=== PATIENT | male | born 1990 | race Caucasian/White ===

== ENCOUNTER 2018-05-02 02:42 | Emergency (ER) | payer SELFPAY ==
[~2018-05-02] VITALS: Ht 167.6 cm; Wt 63.5 kg
--- NOTE | 2018-05-02 02:44 | NUR ---
Pt bib [facility] for prebook.
[2018-05-02 02:45] VITALS: BP_SYST 117; BP_SYST 138; BP_DIAS 72; BP_DIAS 92
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
[2018-05-02] MEDS ORDERED: AMMONIA AROMATIC 1 INHL INH ONE (03:22)
[2018-05-02 03:59] VITALS: BP 117/72
--- NOTE | 2018-05-02 03:59 | NUR ---
PATIENT EXAMINED BY DR. TINSLEY. PATIENT MEDICALLY CLEARED AND RELEASED IN CUSTODY IN STABLE CONDITION. ORIGINAL PRE-BOOK FORM GIVEN TO OFFICER. DISCHARGE INSTRUCTIONS GIVEN TO OFFICER KATELYN. PT RELEASED INTO [facility]USTODY OF [facility]. NAD NOTED. VSS. AMBULATED STEADY GAIT.
== END 2018-05-02 03:59 ==
LOC: MED 02:42
DX: S00.83XA Contusion of other part of head, initial encounter (principal); S00.03XA Contusion of scalp, initial encounter; V89.2XXA Person injured in unspecified motor-vehicle accident, traffic, initial encounter; Y93.89 Activity, other specified; Y92.410 Unspecified street and highway as the place of occurrence of the external cause; Y99.8 Other external cause status
CPT/HCPCS: 99283